=== PATIENT | female | born 1935 | race Caucasian/White ===

== ENCOUNTER 2017-08-03 06:58 | Inpatient (IN) ==
[2017-08-03] MEDS ORDERED: ZOFRAN 4 MG/2 ML IVP STA (07:18)
[2017-08-03] MEDS ORDERED: SODIUM CHLORIDE 1,000 ML IV STA ×2 (07:18→08:50)
[2017-08-03] MEDS ORDERED: TAMIFLU PO STA (08:20)
--- NOTE | 2017-08-03 08:25 | CT ---
EXAM: CT chest without intravenous contrast 08/03/2017. Sagittal and coronal reformatted images obt ained HISTORY: Cough COMPARISON: None. FINDINGS: The heart size appears within normal limits. There is no pericardial effusion. Bibasilar atelectasis. No pleural effusion. No focal pulmonary consolidation. No pneumothorax. Limited views of the upper abdomen shows gallstone. Small bilateral benign-appearing adrenal adenoma . IMPRESSION: Bibasilar atelectasis. No acute superimposed cardiopulmonary process.
--- NOTE | 2017-08-03 08:29 | CT ---
EXAM: CT abdomen pelvis without intravenous contrast 08/03/2017. Sagittal and coronal reformatted i mages obtained HISTORY: Abdominal pain and vomiting COMPARISON: None. FINDINGS: The liver shows no acute abnormality. Large gallstone. Distended gallbladder. Small bilateral benign-appearing adrenal adenoma. No urinary obstruction. The spleen and pancreas show no acute abnormality. No bowel obstruction. Normal appendix. Unremarkable urinary bladder. No free air or free fluid. Diverticulosis without diverticulitis. Chronic degenerative disc disease. No acute osseous abnormality. Severe degenerative changes of the left hip. IMPRESSION: 1. Large gallstone. Distended gallbladder. If pain localizes to the right upper quadrant then ultra sound could be performed. 2. Small bilateral benign adrenal adenoma. 3. No urinary or bowel obstruction and normal appendix. 4. Diverticulosis without diverticulitis. 5. Chronic degenerative disc disease. Severe degenerative change of the left hip.
[2017-08-03] MEDS ORDERED: ALBUTEROL 0.083% NEB NEB STA (08:46)
--- NOTE | 2017-08-03 08:49 | ED.PDOC ---
General ED Provider: Dr. VAISHNAVI WONG-ER Chief Complaint: Cough Stated Complaint: im coughing, running fever and having vomiting and diarrhea Time Seen by Physician: 07:00 Mode of Arrival: Walk-In Information Source: Patient Exam Limitations: No limitations Primary Care Provider: VAISHNAVI WONG Nursing and Triage Documentation Reviewed and Agree: Yes Reviewed sepsis parameters & appropriate labs ordered?: Yes System Inflammatory Response Syndrome: Not Applicable Sepsis Protocol: For patient's 13 years and over: Temp is 96.8 and below OR 101 and greater Pulse >90 BPM Resp >20/minute Acutely Altered Mental Status Are patient's symptoms suggestive of a new infection, such as: -Pneumonia -Skin, Soft Tissue -Endocarditis -UTI -Bone, Joint Infection -Implantable Device -Acute Abdominal Infection -Wound Infection -Meningitis -Blood Stream Catheter Infection -Unknown Respiratory Complaint Exam - Respiratory Complaint/Exam Onset/Duration: 2 days Symptoms Are: Still present Timing: Intermittent Initial Severity: Mild Current Severity: Moderate Location: Nose, Chest Character: Reports: Non-productive cough Aggravating: Reports: URI Alleviating: Reports: None Associated Signs and Symptoms: Reports: Fever, Wheezing, URI. Denies: Rapid breathing, Dyspnea, Chills, Chest pain, Pleuritic chest pain, Hemoptysis, Dizziness, Calf pain, Calf swelling, Edema, Nasal congestion, Hoarseness, Sinus discomfort, Vomiting, Sore throat, Weight loss, Decreased oral intake, Increased thirst, Increased appetite, Increased urination History of Healthcare-Acquired Pneumonia: No Related Surgical History: Reports: None Status Asthmaticus Risk Factors: Reports: None Home Oxygen Use: No Recent Stress Test: No Recent Echo/LV Function: No Current Antibiotic Use: No Current Asthma Medication Use: No Respiratory Distress: None Inadequate Respiratory Effort: No Dysphagia Present: No Stridor Present: No JVD Present: No Accessory Muscle Use: No Retractions: Not Present Diminished Breath Sounds: Yes Sinus Tenderness: None Grunting Respirations: No Kussmaul Respirations: No Differential Diagnoses: Pneumonia, Bronchitis, Influenza Non-Traumatic Chest Pain Syncope: EKG Performed Review of Systems - Review Of Systems Constitutional: Reports: Fever, Weakness Eyes: Reports: No symptoms Ears, Nose, Mouth, Throat: Reports: Nose discharge Respiratory: Reports: Cough, Wheezing Cardiac: Reports: No symptoms GI: Reports: Abdominal pain, Nausea, Vomiting : Reports: No symptoms Musculoskeletal: Reports: No symptoms Skin: Reports: No symptoms Neurological: Reports: No symptoms Endocrine: Reports: No symptoms Hematologic/Lymphatic: Reports: No symptoms All Other Systems: Reviewed and Negative Past Medical History - Past Medical History Previously Healthy: No Endocrine: Reports: Unknown Cardiovascular: Reports: Unknown Respiratory: Reports: Unknown Hematological: Reports: Unknown Gastrointestinal: Reports: Unknown Genitourinary: Reports: Unknown Neuro/Psych: Reports: Unknown Musculoskeletal: Reports: Unknown Cancer: Reports: Unknown Last Menstrual Period: n/a - Surgical History General Surgical History: Reports: Unknown - Family History Family History: Reports: Unknown - Social History Smoking Status: Never smoker Hx Substance Use: No Alcohol Screening: None Lives: With family - Immunizations Tetanus Shot up to Date: (unsure) Physical Exam - Physical Exam Appearance: Ill-appearing, No pain distress, Well-nourished Eyes: JAVAD, EOMI, Conjunctiva clear ENT: Ears normal, Nose normal, Oropharynx normal Neck: Supple Respiratory: Rhonchi Cardiovascular: RRR, Pulses normal, No rub, No murmur GI/: Soft, Nontender, No masses, Bowel sounds normal, No Organomegaly Musculoskeletal: Normal strength, ROM intact, No edema, No calf tenderness Skin: Warm Neurological: Sensation intact Psychiatric: Affect appropriate, Mood appropriate Interpretation - Radiology Interpretation Radiology Interpretation By: Radiologist Radiology Results: Positive Exam Interpreted: CT Scan - EKG Interpretation Time of EKG #1: 08:50 Rate: Normal Rhythm: Sinus Ectopy: None [place]: NL ST Segment: Normal Re-Evaluation - Re-Evaluation Time of Re-Evaluation: 08:53 Status: Improved Vital Signs Stable: Yes Pain Level: 0 Appearance: NAD Lungs: Clear Skin: Warm and Dry Neuro: Alert and Oriented X3 CV: RRR Critical Care Note - Critical Care Note Total Time (mins): 0 Course - Course Hematology/Chemistry: 08/03/17 07:30 08/03/17 07:30 Orders, Labs, Meds: Lab Review 08/03/17 08/03/17 08/03/17 07:30 07:30 07:35 WBC 3.77 L RBC 4.53 Hgb 13.9 Hct 38.9 MCV 85.9 MCH 30.7 MCHC 35.7 H RDW Coeff of Edwin 13.1 Plt Count 120 L Immature Gran % (Auto) 0.3 Neut % (Auto) 63.5 Lymph % (Auto) 22.3 [place] % (Auto) 12.5 H Eos % (Auto) 1.1 Baso % (Auto) 0.3 Immature Gran # (Auto) 0.0 Neut # 2.4 Lymph # 0.8 [facility] # 0.5 Eos # 0.0 Baso # 0.0 Sodium 130 L Potassium 3.3 L Chloride 94 L Carbon Dioxide 24 Anion Gap 15.3 BUN 13 Creatinine 1.05 Estimated GFR (MDRD) 50.00 BUN/Creatinine Ratio 12.38 Glucose 135 H Calcium 8.6 Total Bilirubin 0.7 AST 117 H ALT 100 H Alkaline Phosphatase 112 Total Protein 6.3 Albumin 3.3 L Globulin 3.0 Albumin/Globulin Ratio 1.10 Amylase 81 Lipase 87 H Influenza A (Rapid) Positive by naat H Influenza B (Rapid) Negative by naat Orders Category Date Time Status EKG-(ED ONLY) Stat CARDIO 08/03/17 07:18 Completed NEBULIZER TREATMENT Stat CARDIO 08/03/17 08:46 Ordered ED IV/MEDIPORT/POWERPORT .ONCE EMERGENCY 08/03/17 07:18 Active AMYLASE Stat LAB 08/03/17 07:30 Completed BLOOD CULTURE (ED ONLY) Stat LAB 08/03/17 07:30 Received CBC W/ AUTO DIFF Stat LAB 08/03/17 07:30 Completed COMPREHENSIVE METABOLIC PANEL Stat LAB 08/03/17 07:30 Completed FLU A/B MOLECULAR Stat LAB 08/03/17 07:35 Completed LIPASE Stat LAB 08/03/17 07:30 Completed MOLECULAR GROUP A STREP Stat LAB 08/03/17 07:35 Completed URINALYSIS C & S IF INDICATED Stat LAB 08/03/17 07:18 Uncollected 0.9 % Sodium Chloride [Saline Flush] MEDS 08/03/17 07:18 Active 1 syr IVF PRN PRN Albuterol Sulfate 0.083% Neb [Albuterol 0.083% Neb] MEDS 08/03/17 08:46 Discontinued 1 vial NEB ONCE STA Ondansetron HCl/Pf [Zofran 4 mg/2 ml] MEDS 08/03/17 07:18 Discontinued 4 mg IVP ONCE STA Oseltamivir Phosphate [Tamiflu] MEDS 08/03/17 08:20 Discontinued 75 mg PO ONCE STA Sodium Chloride 0.9% [Sodium Chloride] 1,000 ml MEDS 08/03/17 08:50 Active IV 100 mls/hr Sodium Chloride 0.9% [Sodium Chloride] 1,000 ml MEDS 08/03/17 07:[address] ABDOMEN/PELVIS WO CONTRAST Stat RADS 08/03/17 07:[address] CHEST W/O CONTRAST Stat RADS 08/03/17 07:19 Completed Medications Generic Name Dose Route Start Last Admin Trade Name Freq PRN Reason Stop Dose Admin Sodium Chloride 1,000 mls @ 100 mls/hr 08/03/17 08:50 Sodium Chloride IV 08/03/17 18:49 .Q10H STA Sodium Chloride 1 syr 08/03/17 07:18 08/03/17 07:51 Saline Flush IVF 1 syr PRN PRN Administration To flush IV Discontinued Medications Generic Name Dose Route Start Last Admin Trade Name Freq PRN Reason Stop Dose Admin Albuterol Sulfate 1 vial 08/03/17 08:46 Albuterol 0.083% Neb NEB 08/03/17 08:47 ONCE STA Sodium Chloride 1,000 mls @ 1,000 mls/hr 08/03/17 07:18 08/03/17 07:52 Sodium Chloride IV 08/03/17 08:17 1,000 mls/hr BOLUS STA Administration Ondansetron HCl 4 mg 08/03/17 07:18 08/03/17 07:52 Zofran 4 Mg/2 Ml IVP 08/03/17 07:19 4 mg ONCE STA Administration Oseltamivir Phosphate 75 mg 08/03/17 08:20 08/03/17 08:27 Tamiflu PO 08/03/17 08:21 75 mg ONCE STA Administration Vital Signs: Temp Pulse Resp BP Pulse Ox 08/03/17 08:25 18 130/72 08/03/17 06:59 98.4 F 95 H 20 165/81 H 95 Departure - Departure Time of Disposition: 08:53 Disposition: ADMITTED INPATIENT Discharge Problem: Influenza A, Bronchitis Condition: Fair Pt referred to PMD for follow-up: Yes IPMP verified?: No Allergies/Adverse Reactions: Allergies No Known Allergies Allergy (Unverified 08/03/17 07:09) Home Medications: Ambulatory Orders Amlodipine Besylate [Norvasc] 5 mg PO DAILY 08/03/17 Brimonidine Tartrate/Timolol [Combigan Opth Isabelle] 1 drop EACHEYE DAILY 08/03/17 Calcium Carbonate [Calcium] 500 mg PO DAILY 08/03/17 Ergocalciferol (Vitamin D2) [Vitamin D2] 50,000 unit PO EVERY OTHER WEEK Olmesartan/Hydrochlorothiazide [Benicar Hct 40-25 mg Tablet] 1 each PO DAILY Transfer Form Completed: No Disposition Discussed With: Patient
[2017-08-03] MEDS ORDERED: TYLENOL PO PRN (08:58)
[2017-08-03] MEDS ORDERED: NON-FORMULARY MEDICATION (Olmesartan/Hydrochlorothiazide [Benicar Hct 40-25 Mg Tablet] 1 E PO SCH (09:00)
[2017-08-03] MEDS ORDERED: VANCOMYCIN 1 GM in SODIUM CHLORIDE 250 ML IV ONE (09:00)
[2017-08-03] MEDS ORDERED: ZOFRAN 4 MG/2 ML IVP PRN (09:01)
[2017-08-03] MEDS ORDERED: K-DUR PO STA (09:26)
[2017-08-03 10:40] VITALS: BMI 32.8
[2017-08-03] MEDS: ROCEPHIN 1 GM in SODIUM CHLORIDE 50 ML IV SCH (11:17)
[2017-08-03] MEDS: NORVASC PO SCH (11:18)
[2017-08-03] MEDS: HYDROCHLOROTHIAZIDE PO SCH (11:18)
[2017-08-03] MEDS: LOVENOX SUBCUT SCH (11:18)
[2017-08-03] MEDS: BENICAR PO SCH (11:18)
[2017-08-03] MEDS: SODIUM CHLORIDE 1,000 ML IV SCH (11:23)
[2017-08-03] MEDS: BRIMONIDINE TARTRATE EACHEYE SCH (15:14)
[2017-08-03] MEDS: TIMOLOL EACHEYE SCH (15:14)
[2017-08-03] MEDS: SOLU-MEDROL 40 MG IVP SCH (20:07)
[2017-08-03] MEDS: VANCOMYCIN 500 MG in SODIUM CHLORIDE 100 ML IV SCH (20:07)
[2017-08-03] MEDS: TAMIFLU PO SCH (20:07)
[2017-08-03] MEDS: ALBUTEROL 0.042% NEB NEB PRN (21:15)
[2017-08-04] MEDS: SODIUM CHLORIDE 1,000 ML IV SCH ×2 (00:33→20:32)
[2017-08-04] MEDS: ROCEPHIN 1 GM in SODIUM CHLORIDE 50 ML IV SCH (09:26)
[2017-08-04] MEDS: SOLU-MEDROL 40 MG IVP SCH ×2 (09:29→21:02)
[2017-08-04] MEDS: TAMIFLU PO SCH ×2 (09:30→20:36)
[2017-08-04] MEDS: BENICAR PO SCH (09:31)
[2017-08-04] MEDS: BRIMONIDINE TARTRATE EACHEYE SCH (09:31)
[2017-08-04] MEDS: TIMOLOL EACHEYE SCH (09:31)
[2017-08-04] MEDS: NORVASC PO SCH (09:31)
[2017-08-04] MEDS: HYDROCHLOROTHIAZIDE PO SCH (09:31)
[2017-08-04] MEDS: LOVENOX SUBCUT SCH (09:32)
[2017-08-04] MEDS: VANCOMYCIN 500 MG in SODIUM CHLORIDE 100 ML IV SCH ×2 (10:17→20:36)
--- NOTE | 2017-08-04 10:34 | HP ---
CHIEF COMPLAINT: " I feel awful." DISCUSSION: This is an 81 year old lady who presented to the emergency room with several day history of cough productive of clear mucoid sputum. She is had fever up to 102 with chills with vomiting and diarrhea. She was seen in the emergency department where she was found to be leukopenic with white count of 3,700 and plt count diminished to 120. Chemistry revealed sodium diminished to 130 and potassium 3.3. Liver enzymes was also found to be mildly elevated. Flu swabs were positive Flu A. She was found to have some cough and congestion as well consistent with bronchitis and the patient was subsequently admitted to my services for evaluation and treatment of Flu A with subsequent effects from this. PAST MEDICAL HISTORY: MEDICATIONS: [place] Combigan drops Calcium Benicar Vitamin B 12 ALLERGIES: None PAST MEDICAL HISTORY: History of hypertension Surgical history unknown SOCIAL HISTORY: She denies any alcohol, tobacco or illicit drug use FAMILY HISTORY: Reviewed and thought not to be pertinent to discussion. REVIEW OF SYSTEMS: Nasal congestion, sore throat, cough productive of clear mucoid sputum, short of breath on any type of exertion. No headaches, visual changes, tinnitus, hemoptysis, blood in the stool, urinary symptoms or seizures. PHYSICAL EXAMINATION: V/S: Temperature 98.4. pulse 95, blood pressure 165/81, respiratory rate 20 and pulse ox 95%. HEENT: Pupils are round. NECK: Supple. CHEST: Clear. CARDIOVASCULAR: Regular rate and rhythm. ABDOMEN: Soft, nontender. EXTREMITIES: Distal extremities without cyanosis or edema. ASSESSMENT: 1. Dehydration 2. Influenza A 3. Bronchitis PLAN: 1. Admission 2. IV fluids 3. Antiemetics 4. Antibiotics 5. Updrafts 6. Will initial Tamiflu Please see orders. MTDD
--- NOTE | 2017-08-04 10:41 | PN ---
DATE OF VISIT: 08/04/17 SUBJECTIVE: Catrachita says that she is feeling much better. Her nausea and vomiting has resolved and her diarrhea has resolved as well. She still has cough and congestion but overall is feeling better. REVIEW OF SYSTEMS: PHYSICAL EXAMINATION: VITAL SIGNS: Temperature 97.9, pulse 81, blood pressure 122/68 and respiratory 16, o2 92%. HEENT: Pupils are round NECK: Supple CHEST: Clear with occasional rhonchi sounds CARDIOVASCULAR: Regular rate and rhythm ABDOMEN: Soft, nontender EXTREMITIES: Distal extremities without cyanosis or edema. ASSESSMENT: 1. Influenza A 2. Bronchitis LABS: Reviewed. Sodium is improved went from 130 to 137, potassium increased from 3.3 to 4. Her liver enzymes have improved. Her AST went from 117 to 87, ALT went from 100 to 98. PLAN: 1. Continue Tamiflu, IV support, NEB treatments as well as Antibiotics Please see orders MTDD
[2017-08-05] MEDS: SOLU-MEDROL 40 MG IVP SCH ×2 (08:12→20:36)
[2017-08-05] MEDS: LOVENOX SUBCUT SCH (08:13)
[2017-08-05] MEDS: BENICAR PO SCH (08:13)
[2017-08-05] MEDS: ROCEPHIN 1 GM in SODIUM CHLORIDE 50 ML IV SCH (08:13)
[2017-08-05] MEDS: NORVASC PO SCH (08:14)
[2017-08-05] MEDS: TAMIFLU PO SCH ×2 (08:14→20:36)
[2017-08-05] MEDS: BRIMONIDINE TARTRATE EACHEYE SCH (08:14)
[2017-08-05] MEDS: HYDROCHLOROTHIAZIDE PO SCH (08:14)
[2017-08-05] MEDS: TIMOLOL EACHEYE SCH (08:14)
[2017-08-05] MEDS: VANCOMYCIN 500 MG in SODIUM CHLORIDE 100 ML IV SCH ×2 (09:01→20:36)
[2017-08-05] MEDS: ALBUTEROL 0.042% NEB NEB PRN ×2 (14:32→21:19)
[2017-08-05] MEDS: SODIUM CHLORIDE 1,000 ML IV SCH (18:10)
[2017-08-05 22:45] VITALS: TEMP 97.5
[2017-08-06] MEDS: LOVENOX SUBCUT SCH (08:12)
[2017-08-06] MEDS: ROCEPHIN 1 GM in SODIUM CHLORIDE 50 ML IV SCH (08:12)
[2017-08-06] MEDS: SOLU-MEDROL 40 MG IVP SCH (08:13)
[2017-08-06] MEDS: TAMIFLU PO SCH (08:14)
[2017-08-06] MEDS: HYDROCHLOROTHIAZIDE PO SCH (08:14)
[2017-08-06] MEDS: NORVASC PO SCH (08:14)
[2017-08-06] MEDS: BENICAR PO SCH (08:14)
[2017-08-06] MEDS: TIMOLOL EACHEYE SCH (08:15)
[2017-08-06] MEDS: BRIMONIDINE TARTRATE EACHEYE SCH (08:15)
[2017-08-06] MEDS: VANCOMYCIN 500 MG in SODIUM CHLORIDE 100 ML IV SCH (09:33)
[2017-08-06] MEDS ORDERED: ALBUTEROL 0.042% NEB NEB PRN (14:52)
[2017-08-06 17:34] VITALS: BP 132/76
--- NOTE | 2017-08-07 08:10 | PN ---
DATE OF VISIT: 08/05/17 SUBJECTIVE: Catrachita continues to improved and her cough is better. She still has an occasional wheeze but it is improved. Her appetite is much better. OBJECTIVE: Temperature 96, pulse 890, respiratory rate 20 and blood pressure 130/80. PHYSICAL EXAMINATION: OBJECTIVE: Temperature 96, pulse 890, respiratory rate 20 and blood pressure 130 /80. HEENT: Pupils are round NECK: Supple CHEST: A few expiratory wheezes but improved CARDIOVASCULAR: Regular rate and rhythm ABDOMEN: Soft, nontender EXTREMITIES: Distal extremities without cyanosis or edema. ASSESSMENT: 1. Influenza with bronchitis PLAN: 1. Continue steroids 2. Bronchial dilators 3. Antibiotics 4. Probable discharge tomorrow if she continues to improve MTDD
--- NOTE | 2017-08-07 08:14 | DS ---
PRINCIPAL DIAGNOSIS: 1. Dehydration secondary to #2 2. Influenza 3. Bronchitis DISCUSSION: This is an 81 year old lady who presented to the emergency room with several day history of cough productive of clear mucoid sputum. She is had fever up to 102 with chills with vomiting and diarrhea. She was seen in the emergency department where she was found to be leukopenic with white count of 3,700 and plt count diminished to 120. Chemistry revealed sodium diminished to 130 and potassium 3.3. Liver enzymes was also found to be mildly elevated. Flu swabs were positive Flu A. She was found to have some cough and congestion as well consistent with bronchitis and the patient was subsequently admitted to my services for evaluation and treatment of Flu A with subsequent effects from this. CLINICAL COURSE: Ms. Pa was admitted because of her nausea, vomiting and diarrhea. She was dehydrated and given fluids with improvement and her GI symptoms she was about to take PO at this point. Her nausea resolved. We advances her diet. Her expiratory wheezing had markedly improved and at time of discharge had actually resolved. At time of discharge she was tolerating regular diet without nausea of vomiting. Her oximetry had improved and this point she was discharged. She was discharged on antibiotics and steroids and will followup with me in one week. HILARY
== END 2017-08-06 18:50 | disposition home or self-care (01) | DRG 195 ==
LOC: ED 06:58 → SCU 09:02
PROVIDERS: ADMIT Family Medicine; ATTEND Family Medicine
DX: J10.1 Influenza due to other identified influenza virus with other respiratory manifestations (principal); J20.9 Acute bronchitis, unspecified; R11.2 Nausea with vomiting, unspecified; R10.9 Unspecified abdominal pain; E86.0 Dehydration; Z79.899 Other long term (current) drug therapy
CPT/HCPCS: 36415; 80053; 80202; 81001; 82150; 83690; 85025; 87040; 87502; 87651; 93005; 93010; 94640; 96361; 96374; 99284